=== PATIENT | male | born 1975 | race Caucasian/White ===

== ENCOUNTER 2020-10-14 00:13 | Emergency (ER) | payer OTHER ==
[2020-10-14] MEDS ORDERED: MORPHINE 4 MG/ML SYR ONE (01:31)
[2020-10-14] MEDS ORDERED: KETOROLAC 30 MG/ML INJ ONE (01:32)
[2020-10-14] MEDS ORDERED: ONDANSETRON 4 MG/2 ML VIAL ONE (01:32)
[2020-10-14] MEDS ORDERED: NA CHLORIDE 0.9% 1,000 ML ONE (01:32)
[2020-10-14 01:34] LABS: Absolute Lymphocytes (CBC) 1.3 K/uL (0.7-4.9); Basophils % 0.5 % (0-1.3); Hematocrit 41.6 % (39.6-49.0); Lymphocytes % 10.6 % (15.3-44.8); MPV 7.8 fL (7.6-11.3); RBC Red Blood Cell Count 4.74 M/uL (4.33-5.43)
[2020-10-14 01:40] LABS: Albumin 4.6 g/dL (3.4-5.0); Bilirubin Direct 0.1 mg/dL (0-0.2); Bilirubin Total 0.5 mg/dL (0.2-1.0); Potassium 3.8 mmol/L (3.5-5.1); Protein, Total 7.6 g/dL (6.4-8.2)
--- NOTE | 2020-10-14 02:39 | ER ---
Nurse's Notes [facility] Name: Jassi Cohen Age: 45 yrs Sex: Male : 1975 Arrival Date: 10/14/2020 Time: 00:17 Bed 27 Private MD: Diagnosis: Fall (on) (from) other stairs and steps;Contusion of back wall of thorax;Pain in right shoulder Presentation: 10/14 00:25 Chief complaint: Patient states: I slipped on my porch going down the steps and landed iw on my back and now my middle back. neck, right arm are all hurting. Care prior to arrival: None. Mechanism of Injury: Fall from standing position. Trauma event details: Injury occurred in the [facility]. 00:25 Acuity: KIEL 3 iw 00:25 Method Of Arrival: Ambulatory iw 00:25 Coronavirus screen: At this time, the client does not indicate any symptoms associated iw with coronavirus-19. Ebola Screen: Patient negative for fever greater than or equal to 101.5 degrees Fahrenheit, and additional compatible Ebola Virus Disease symptoms Patient denies exposure to infectious person. Patient denies travel to an Ebola-affected area in the 21 days before illness onset. No symptoms or risks identified at this time. Initial Sepsis Screen: Does the patient meet any 2 criteria? No. Patient's initial sepsis screen is negative. Does the patient have a suspected source of infection? No. Patient's initial sepsis screen is negative. Risk Assessment: Do you want to hurt yourself or someone else? Patient reports no desire to harm self or others. Onset of symptoms was October 14, 2020. Triage Assessment: 02:55 General: Appears in no apparent distress. Behavior is calm, cooperative. iw Trauma Activation: Not Applicable Physician: ED Physician; Name: ; Notified At: ; Arrived At: Physician: General Surgeon; Name: ; Notified At: ; Arrived At: Physician: Radiology; Name: ; Notified At: ; Arrived At: Physician: Respiratory; Name: ; Notified At: ; Arrived At: Physician: Lab; Name: ; Notified At: ; Arrived At: Historical: - Allergies: 00:29 Wellbutrin; iw - Home Meds: 00:29 amlodipine oral [Active]; trazodone Oral [Active]; Omeprazole Oral [Active]; Acyclovir iw Oral [Active]; - PMHx: 00:29 Hypertension; insomnia; herpes; acid reflux; iw - PSHx: 00:29 Vasectomy; iw - Immunization history:: Adult Immunizations up to date. - Social history:: Smoking status: Patient reports the use of cigarette tobacco products, smokes one-half pack cigarettes per day, Patient/guardian denies using alcohol, street drugs. Screenin:52 Abuse screen: Denies threats or abuse. Denies injuries from another. Nutritional iw screening: No deficits noted. Tuberculosis screening: No symptoms or risk factors identified. Fall Risk IV access (20 points). Assessment: :52 Reassessment: Patient appears in no apparent distress at this time. Patient and/or iw family updated on plan of care and expected duration. Pain level reassessed. Patient is alert, oriented x 3, equal unlabored respirations, skin warm/dry/pink. Vital Signs: 00:30 BP 145 / 100; Pulse 71; Resp 18; Temp 98.7(O); Pulse Ox 100% ; Weight 77.11 kg; Height iw 5 ft. 9 in. (175.26 cm); Pain 10/10; 00:30 Body Mass Index 25.10 (77.11 kg, 175.26 cm) iw ED Course: 00:17 Patient arrived in ED. am4 00:26 Filipe Moya MD is Attending Physician. leonid 00:27 Triage completed. iw 00:31 Arm band placed on left wrist. iw 00:33 Taylor Izquierdo, RN is Primary Nurse. iw 00:36 Initial lab(s) drawn, by me, sent to lab. Inserted saline lock: 20 gauge in right iw antecubital area, using aseptic technique. Blood collected. 02:16 XRAY Chest (1 view) In Process Unspecified. EDMS 02:16 CT Traumagram (Head C Spine CAP W Con) In Process Unspecified. EDMS 02:16 Shoulder Right (2 View) XRAY In Process Unspecified. EDMS 02:38 Zeus Liang MD is Referral Physician. leonid 02:55 No provider procedures requiring assistance completed. IV discontinued, intact, iw bleeding controlled, No redness/swelling at site. Pressure dressing applied. Administered Medications: 01:51 Drug: TORadol (ketorolac) 30 mg Route: IVP; Site: right antecubital; iw 01:51 Drug: morphine 4 mg Route: IVP; Site: right antecubital; iw 01:51 Drug: Zofran (Ondansetron) 4 mg Route: IVP; Site: right antecubital; iw 01:52 Drug: NS 0.9% 1000 ml Route: IV; Rate: 1 bolus; Site: right antecubital; iw Outcome: 02:38 Discharge ordered by MD. jaquez 02:57 Discharged to home ambulatory, with friend. iw 02:57 Condition: good 02:57 Discharge instructions given to patient, Instructed on discharge instructions, follow up and referral plans. medication usage, Demonstrated understanding of instructions, follow-up care, medications, Prescriptions given X 2. 02:57 Patient left the ED. iw Signatures: Dispatcher [employer] EDMS Filipe Moya MD MD cha Williams, Irene, RN RN Lucie Rivera am4
--- NOTE | 2020-10-14 02:39 | EDPHYS ---
Physician Documentation [facility] Name: Jassi Cohen Age: 45 yrs Sex: Male : 1975 Arrival Date: 10/14/2020 Time: 00:17 Bed 27 Private MD: ED Physician Filipe Moya HPI: 10/14 00:48 This 45 yrs old Male presents to ER via Ambulatory with complaints of Fall leonid Injury. 00:48 Details of fall: The patient fell from a height, down approximately 5 stairs. Onset: leonid The symptoms/episode began/occurred 5 hour(s) ago. Associated injuries: The patient sustained injury to the head, neck injury, upper back injury, injury to the low back, injury to the chest, pain with breathing, tenderness. Severity of symptoms: At their worst the symptoms were moderate, in the emergency department the symptoms are unchanged. The patient has not experienced similar symptoms in the past. Historical: - Allergies: 00:29 Wellbutrin; iw - Home Meds: 00:29 amlodipine oral [Active]; trazodone Oral [Active]; Omeprazole Oral [Active]; Acyclovir iw Oral [Active]; - PMHx: 00:29 Hypertension; insomnia; herpes; acid reflux; iw - PSHx: 00:29 Vasectomy; iw - Immunization history:: Adult Immunizations up to date. - Social history:: Smoking status: Patient reports the use of cigarette tobacco products, smokes one-half pack cigarettes per day, Patient/guardian denies using alcohol, street drugs. ROS: 00:49 Constitutional: Negative for fever, chills, and weight loss, Eyes: Negative for injury, leonid pain, redness, and discharge, ENT: Negative for injury, pain, and discharge, Neck: Negative for injury, pain, and swelling, Cardiovascular: Negative for chest pain, palpitations, and edema, Abdomen/GI: Negative for abdominal pain, nausea, vomiting, diarrhea, and constipation, : Negative for injury, bleeding, discharge, and swelling, MS/Extremity: Negative for injury and deformity, Skin: Negative for injury, rash, and discoloration, Neuro: Negative for headache, weakness, numbness, tingling, and seizure, Psych: Negative for depression, anxiety, suicide ideation, homicidal ideation, and hallucinations, Allergy/Immunology: Negative for hives, rash, and allergies, Endocrine: Negative for neck swelling, polydipsia, polyuria, polyphagia, and marked weight changes, Hematologic/Lymphatic: Negative for swollen nodes, abnormal bleeding, and unusual bruising. 00:49 Respiratory: Positive for cough, with no reported sputum, shortness of breath, at rest. 00:49 Back: Positive for pain at rest, pain with movement, of the lumbar area, left mid back and right mid back. Exam: 00:49 Constitutional: This is a well developed, well nourished patient who is awake, alert, leonid and in no acute distress. Head/Face: Normocephalic, atraumatic. Eyes: Pupils equal round and reactive to light, extra-ocular motions intact. Lids and lashes normal. Conjunctiva and sclera are non-icteric and not injected. Cornea within normal limits. Periorbital areas with no swelling, redness, or edema. ENT: Nares patent. No nasal discharge, no septal abnormalities noted. Tympanic membranes are normal and external auditory canals are clear. Oropharynx with no redness, swelling, or masses, exudates, or evidence of obstruction, uvula midline. Mucous membranes moist. Neck: Trachea midline, no thyromegaly or masses palpated, and no cervical lymphadenopathy. Supple, full range of motion without nuchal rigidity, or vertebral point tenderness. No Meningismus. Chest/axilla: Normal chest wall appearance and motion. Nontender with no deformity. No lesions are appreciated. Cardiovascular: Regular rate and rhythm with a normal S1 and S2. No gallops, murmurs, or rubs. Normal PMI, no JVD. No pulse deficits. Abdomen/GI: Soft, non-tender, with normal bowel sounds. No distension or tympany. No guarding or rebound. No evidence of tenderness throughout. Male : Normal genitalia with no discharge or lesions. Skin: Warm, dry with normal turgor. Normal color with no rashes, no lesions, and no evidence of cellulitis. MS/ Extremity: Pulses equal, no cyanosis. Neurovascular intact. Full, normal range of motion. Neuro: Awake and alert, GCS 15, oriented to person, place, time, and situation. Cranial nerves II-XII grossly intact. Motor strength 5/5 in all extremities. Sensory grossly intact. Cerebellar exam normal. Normal gait. Psych: Awake, alert, with orientation to person, place and time. Behavior, mood, and affect are within normal limits. 00:49 Respiratory: the patient does not display signs of respiratory distress, Respirations: asymmetrical chest movement, that is mild. 00:49 Back: pain, that is mild, that is moderate, of the lumbar area, left mid back and right mid back, ROM is normal, normal spinal alignment noted, CVA tenderness, is absent, vertebral tenderness, is not appreciated. Vital Signs: 00:30 BP 145 / 100; Pulse 71; Resp 18; Temp 98.7(O); Pulse Ox 100% ; Weight 77.11 kg; Height iw 5 ft. 9 in. (175.26 cm); Pain 10/10; 00:30 Body Mass Index 25.10 (77.11 kg, 175.26 cm) iw MDM: 00:44 Patient medically screened. leonid 00:52 Differential diagnosis: Fracture Osteoporosis ruptured disc. Antibiotic administration: leonid Not indicated. Differential diagnosis: contusion, fracture, laceration, multiple trauma, sprain, strain. The patient's Wells Deep Vein Thrombosis Score was calculated as follows: Total Score: 0-2 Pts- Low Risk. The patient's pulmonary embolism risk score was calculated as follows: Total Score: 0-2 points. This patient was found to be at low risk for a pulmonary embolism by using the Well's assessment criteria. Immunization status:. Data reviewed: vital signs, nurses notes, lab test result(s), EKG, radiologic studies, CT scan, plain films. Data interpreted: bus monitor: rate is 71 beats/min, rhythm is regular, Pulse oximetry: on room air is 100 %. Test interpretation: by ED physician or midlevel provider: ECG, plain radiologic studies. Counseling: I had a detailed discussion with the patient and/or guardian regarding: the historical points, exam findings, and any diagnostic results supporting the discharge/admit diagnosis, the presence of at least one elevated blood pressure reading (>120/80) during this emergency department visit, lab results, the need for outpatient follow up, for definitive care, a family practitioner, a orthopedic surgeon. 10/14 00:48 Order name: Basic Metabolic Panel leonid 10/15 99:48 Order name: CBC with Diff leonid 10/15 99:48 Order name: LFT's leonid 05/20 00:48 Order name: Lipase leonid 10/14 01:40 Order name: Basic Metabolic Panel; Complete Time: 02:17 [facility] 10/14 00:48 Order name: XRAY Chest (1 view) [facility] 10/14 00:48 Order name: CT Traumagram (Head C Spine CAP W Con) [facility] 10/14 00:48 Order name: Shoulder Right (2 View) XRAY [facility] 10/14 00:57 Order name: INCENTIVE SPIROMETRY [facility] 10/14 01:40 Order name: Liver (Hepatic) Function; Complete Time: 02:17 [facility] 10/14 01:40 Order name: Lipase; Complete Time: 02:17 [facility] 10/14 01:50 Order name: CBC with Automated Diff; Complete Time: 02:17 [facility] 10/14 02:12 Order name: CREATININE WHOLE BLOOD; Complete Time: 02:17 [facility] 10/14 00:48 Order name: Labs collected and sent; Complete Time: 01:07 [facility] 10/14 00:58 Order name: Sling; Complete Time: 02:56 [facility] 10/14 00:58 Order name: Ice pack; Complete Time: 02:57 [facility] Administered Medications: 01:51 Drug: TORadol (ketorolac) 30 mg Route: IVP; Site: right antecubital; iw 01:51 Drug: morphine 4 mg Route: IVP; Site: right antecubital; iw 01:51 Drug: Zofran (Ondansetron) 4 mg Route: IVP; Site: right antecubital; iw 01:52 Drug: NS 0.9% 1000 ml Route: IV; Rate: 1 bolus; Site: right antecubital; iw Disposition: 10/14/20 02:38 Discharged to Home. Impression: Fall (on) (from) other stairs and steps, Contusion of back wall of thorax, Pain in right shoulder. - Condition is Stable. - Discharge Instructions: Fall Prevention in the Home, Musculoskeletal Pain, Shoulder Pain, Cryotherapy, [id number], Incentive Spirometer, Shoulder Pain, [id number], Fall Prevention in the Home, [id number], Cryotherapy. - Prescriptions for Ibuprofen 600 mg Oral Tablet - take 1 tablet by ORAL route every 6 hours As needed take with food; 20 tablet. Tylenol- Codeine #3 300-30 mg Oral Tablet - take 2 tablets by ORAL route every 4-6 hours As needed; 26 tablet. - Medication Reconciliation Form, Thank You Letter, Antibiotic Education, Prescription Opioid Use form. - Follow up: Private Physician; When: 2 - 3 days; Reason: Recheck today's complaints, Continuance of care, Re-evaluation by your physician. Follow up: Zeus Liang; When: 2 - 3 days; Reason: Recheck today's complaints, Re-evaluation by your physician. - Problem is new. - Symptoms have improved. Signatures: Dispatcher [employer] EDFilipe Mart MD MD cha Williams, Irene RN RN iw Corrections: (The following items were deleted from the chart) 02:57 02:38 10/14/2020 02:38 Discharged to Home. Impression: Fall (on) (from) other stairs iw and steps; Contusion of back wall of thorax; Pain in right shoulder. Condition is Stable. Discharge Instructions: Musculoskeletal Pain, Shoulder Pain, Cryotherapy, [id number], Shoulder Pain, [id number], Cryotherapy, Fall Prevention in the Home, Incentive Spirometer, Fall Prevention in the Home, [id number]-ly-[id number]. Prescriptions for Ibuprofen 600 mg Oral Tablet - take 1 tablet by ORAL route every 6 hours As needed take with food; 20 tablet, Tylenol-Codeine #3 300-30 mg Oral Tablet - take 2 tablets by ORAL route every 4-6 hours As needed; 26 tablet. and Forms are Medication Reconciliation Form, Thank You Letter, Antibiotic Education, Prescription Opioid Use. Follow up: Private Physician; When: 2 - 3 days; Reason: Recheck today's complaints, Continuance of care, Re-evaluation by your physician. Follow up: Zeus Liang; When: 2 - 3 days; Reason: Recheck today's complaints, Re-evaluation by your physician. Problem is new. Symptoms have improved. leonid
[2020-10-14 03:06] VITALS: BP 145/100; TEMP 98.7; O2SAT 100
--- NOTE | 2020-10-14 07:24 | RAD REPORT ---
EXAM DESCRIPTION: Leodan Single View10/14/2020 1:14 am CLINICAL HISTORY: Chest pain COMPARISON: none FINDINGS: The lungs appear clear of acute infiltrate. The heart is normal size IMPRESSION: No acute abnormalities displayed
--- NOTE | 2020-10-14 07:40 | RAD REPORT ---
EXAM DESCRIPTION: RAD - Shoulder Right 2 View - 10/14/2020 1:14 am CLINICAL HISTORY: Right shoulder pain FINDINGS: No fracture or dislocation is seen.
--- NOTE | 2020-10-14 10:44 | RAD REPORT ---
EXAM DESCRIPTION: CT - Head C Spine Cap Augustina Grimm - 10/14/2020 6:48 am CLINICAL HISTORY: The patient is 45 years old and is Male; PAIN TECHNIQUE: Axial computed tomography images of the head/brain and cervical spine without intravenous contrast. Sagittal and coronal reformatted images were created and reviewed. This CT exam was pe rformed using one or more of the following dose reduction techniques: automated exposure control, a djustment of the mA and/or kV according to patient size, and/or use of iterative reconstruction techn ique. COMPARISON: No relevant prior studies available. FINDINGS: Brain: Unremarkable. No hemorrhage. No significant white matter disease. No edema. Ventricles: Unremarkable. No ventriculomegaly. Skull: No acute fracture. Sinuses: Unremarkable as visualized. No acute sinusitis. Mastoid air cells: Unremarkable as visualized. No mastoid effusion. Vertebrae: Unremarkable. No acute fracture. Normal alignment. Discs/spinal canal/neural foramina: No acute findings. No spinal canal stenosis. Soft tissues: Unremarkable. 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 * A single impression for all exams can be found at the end of this report EXAM DESCRIPTION: CT Chest, Abdomen and Pelvis With Intravenous Contrast CLINICAL HISTORY: The patient is 45 years old and is Male; PAIN TECHNIQUE: Axial computed tomography images of the chest, abdomen and pelvis with intravenous contra st. Sagittal and coronal reformatted images were created and reviewed. This CT exam was performed using one or more of the following dose reduction techniques: automated exposure control, adjustme nt of the mA and/or kV according to patient size, and/or use of iterative reconstruction technique. COMPARISON: No relevant prior studies available. FINDINGS: CHEST: Lungs: Unremarkable. No mass. No consolidation. Pleural space: Unremarkable. No significant effusion. No pneumothorax. Heart: Unremarkable. No cardiomegaly. No significant pericardial effusion. ABDOMEN: Liver: Unremarkable. No mass. Gallbladder and bile ducts: Unremarkable. No calcified stones. No ductal dilation. Pancreas: Unremarkable. No ductal dilation. No mass. Spleen: Unremarkable. No splenomegaly. Adrenals: Unremarkable. No mass. Kidneys and ureters: Unremarkable. No hydronephrosis. No solid mass. Stomach and bowel: There is the suggestion bowel wall thickening involving the proximal small jenny wel. No obstruction. PELVIS: Appendix: The appendix is normal. Bladder: Unremarkable. No mass. Reproductive: Unremarkable as visualized. CHEST, ABDOMEN and PELVIS: Intraperitoneal space: Unremarkable. No significant fluid collection. No free air. Bones/joints: Unremarkable. No acute fracture. No dislocation. Soft tissues: Unremarkable. Vasculature: Unremarkable. No aortic aneurysm. Lymph nodes: Unremarkable. No enlarged lymph nodes. * A single impression for all exams can be found at the end of this report IMPRESSION: CT Head and Cervical Spine Without Intravenous Contrast: 1. No acute intracranial abnormality. 2. Peripherally oriented calcification in the pineal region with the suggestion of an underlying cy stic lesion. Consider MRI for further evaluation if clinically indicated. CT Chest, Abdomen and Pelvis With Intravenous Contrast: 1. No acute finding in the chest. 2. There is the suggestion bowel wall thickening involving the proximal small bowel. Correlate wi th any concern for enteritis. Electronically signed by: Jassi Valerio MD 10/14/2020 2:22 AM CDT Due to temporary technical issues with the PACS/Fluency reporting system, reports are being signed by the in house radiologist without review as a courtesy to ensure prompt reporting. The interpreting r adiologist is fully responsible for the content of the report.
== END 2020-10-14 02:57 | disposition home or self-care (01) ==
LOC: ER 00:13
DX: S20.221A Contusion of right back wall of thorax, initial encounter (principal); M25.511 Pain in right shoulder; W10.9XXA Fall (on) (from) unspecified stairs and steps, initial encounter; I10 Essential (primary) hypertension; F17.210 Nicotine dependence, cigarettes, uncomplicated; Z88.8 Allergy status to other drugs, medicaments and biological substances
CPT/HCPCS: 85025; 80048; 36415; 82565; 80076; 83690; 70450; 72125; 71260; 74177; 71045; 73030; 96375; 96374; 99284; Q9967; J7030; J2405

== ENCOUNTER 2021-05-10 12:09 | Emergency (ER) | payer OTHER, SELFPAY ==
[2021-05-10 13:38] LABS: SARS-COV-2 RT PCR NEGATIVE (NEGATIVE)
--- NOTE | 2021-05-10 14:31 | EDPHYS ---
Physician Documentation [facility] Name: Jassi Cohen Age: 46 yrs Sex: Male : 1975 Arrival Date: 05/10/2021 Time: 12:18 Bed DIS14 Private MD: ED Physician Mundo Rai HPI: 05/10 14:26 This 46 yrs old Male presents to ER via EMS with complaints of Chest Pain. rn 14:26 The patient or guardian reports chest pain that is located primarily in the anterior rn chest wall. Onset: 4 day(s) ago. The pain does not radiate. Associated signs and symptoms: Pertinent negatives: abdominal pain, diaphoresis, lower extremity swelling, palpitations, shortness of breath, syncope, vomiting. The chest pain is described as sharp. Duration: The patient or guardian reports multiple episodes, that are intermittent. Modifying factors: The symptoms are alleviated by nothing. the symptoms are aggravated by palpation of area. Severity of pain: At its worst the pain was moderate in the emergency department the pain has improved. The patient has experienced similar episodes in the past. The patient has not recently seen a physician. Patient reports 4-5 days of chest pain, anterior, nonradiating, not associated with fever or cough. No abdominal pain. No acid reflux. Also reports aches and pains in the neck and back and hands and feet. Denies drug use. Reports family history of coronary artery disease. Patient does not feel ill. Is active smoker. Denies injury. Patient was brought back after 2-hour wait in the lobby, states he does not want to wait for a work-up. Request to be discharged home and states will take it easy and return if anything worsens.. Historical: - Home Meds: 12:21 amlodipine oral [Active]; lisinopril 10 mg Oral tab [Active]; jh6 - Immunization history:: Client reports receiving the 2nd dose of the Covid vaccine. - Social history:: Smoking status: Patient reports the use of cigarette tobacco products. - Family history:: not pertinent. - Hospitalizations: : No recent hospitalization is reported. ROS: 14:26 Constitutional: Negative for fever, chills, and weight loss, Eyes: Negative for injury, rn pain, redness, and discharge, Neck: Negative for injury, and swelling, Cardiovascular: Negative for palpitations, and edema, Respiratory: Negative for shortness of breath, cough, wheezing, and pleuritic chest pain, Abdomen/GI: Negative for abdominal pain, nausea, vomiting, diarrhea, and constipation, Back: Negative for injury and pain, MS/Extremity: Negative for injury and deformity, Skin: Negative for injury, rash, and discoloration, Neuro: Negative for headache, weakness, numbness, tingling, and seizure. Exam: 14:26 Constitutional: This is a well developed, well nourished patient who is awake, alert, rn and in no acute distress. Head/Face: Normocephalic, atraumatic. Eyes: Periorbital areas with no swelling, redness, or edema. Chest/axilla: Mild tenderness anterior chest wall, no crepitus or masses Cardiovascular: Regular rate and rhythm . No pulse deficits. Respiratory: No increased work of breathing, no retractions or nasal flaring. Abdomen/GI: Soft, non-tender Skin: Warm, dry MS/ Extremity: Pulses equal, no cyanosis. Neuro: Awake and alert, GCS 15 Vital Signs: 12:18 BP 151 / 92; Pulse 80; Resp 17; Temp 99(T); Pulse Ox 100% ; Weight 77.11 kg; Height 5 jh6 ft. 9 in. (175.26 cm); Pain 5/10; 15:03 BP 146 / 84; Pulse 80; Resp 16; Pulse Ox 100% on R/A; Pain 0/10; ss 12:18 Body Mass Index 25.10 (77.11 kg, 175.26 cm) 6 MDM: 14:09 Patient medically screened. rn 14:26 Differential diagnosis: abnormal EKG, acute myocardial infarction, acute pericarditis, rn anxiety, coronary artery disease chest wall pain, cholecystitis, Cholelithiasis costochondritis, esophagitis, gastritis, gastroesophageal reflux disease (GERD), pleurisy, pneumonia, pneumothorax, pulmonary embolus. Data reviewed: vital signs, nurses notes, lab test result(s), EKG. Refusal of service: The patient/guardian displays adequate decision making capability and despite a detailed discussion of alternatives, benefits, risks, and consequences refuses: all lab tests, Medications, all X-rays. ED course: Pt refuses further w/u, wishes to be discharged home. Understands risks of leaving prior to work-up and further evaluation. States is tired and wants to go home and take it easy. Return precautions given and understood.. 05/10 12:38 Order name: COVID-19/FLU A+B (Document "Date of Onset" if Symptomatic); Complete Time: ss 14:26 05/10 14:11 Order name: EKG; Complete Time: 14:11 ss 12 14:11 Order name: EKG - Nurse/Tech; Complete Time: 14:11 ss Administered Medications: No medications were administered Disposition Summary: 05/10/21 14:30 Discharge Ordered Location: Home rn Problem: new rn Symptoms: have improved rn Condition: Stable rn Diagnosis - Chest pain, unspecified rn Followup: rn - With: Private Physician - When: As needed - Reason: Recheck today's complaints, Re-evaluation by your physician Discharge Instructions: - Discharge Summary Sheet rn - Nonspecific Chest Pain, Adult rn - Pain Without a Known Cause rn - Steps to Quit Smoking rn Forms: - Medication Reconciliation Form rn - Thank You Letter rn - Antibiotic rn support services - Prescription Opioid Use rn Signatures: Dispatcher [employer] EDMundo Griffith MD MD rn Smirch, Shelby, RN RN Lia Rubio RN RN [facility] Corrections: (The following items were deleted from the chart) 12: 12:21 PMHx: Hypertension; 6 6 12: 12:21 PMHx: insomnia; [address] [facility] 12: 12:21 PMHx: HERPES; [address] [facility] 12: 12:21 PMHx: acid reflux; [address] [facility]
--- NOTE | 2021-05-10 14:31 | ER ---
Nurse's Notes [facility] Name: Jassi Cohen Age: 46 yrs Sex: Male : 1975 Arrival Date: 05/10/2021 Time: 12:18 Bed DIS14 Private MD: Diagnosis: Chest pain, unspecified Presentation: 05/10 12:18 Chief complaint: Patient states: heavy chest pain that has been present x 4 days. [facility] states came on gradually while at work with dizziness. Coronavirus screen: At this time, the client does not indicate any symptoms associated with coronavirus-19. Ebola Screen: No symptoms or risks identified at this time. Initial Sepsis Screen: Does the patient meet any 2 criteria? No. Patient's initial sepsis screen is negative. Does the patient have a suspected source of infection? No. Patient's initial sepsis screen is negative. Risk Assessment: Do you want to hurt yourself or someone else? Patient reports no desire to harm self or others. Onset of symptoms was May 06, 2021. 12:18 Method Of Arrival: EMS: [facility] 12:18 Acuity: KIEL 2 [facility] Triage Assessment: 12:22 General: Appears in no apparent distress. comfortable, slender, well groomed, Behavior [facility] is calm. Pain: Complains of pain in left nipple Pain does not radiate. Pain currently is 5 out of 10 on a pain scale. Cardiovascular: No deficits noted. Historical: - Home Meds: 12:21 amlodipine oral [Active]; lisinopril 10 mg Oral tab [Active]; [facility] - Immunization history:: Client reports receiving the 2nd dose of the Covid vaccine. - Social history:: Smoking status: Patient reports the use of cigarette tobacco products. - Family history:: not pertinent. - Hospitalizations: : No recent hospitalization is reported. Screenin:24 Abuse screen: Denies threats or abuse. Nutritional screening: No deficits noted. [facility] Tuberculosis screening: No symptoms or risk factors identified. 15:03 Fall Risk None identified. ss Assessment: 15:03 Reassessment: Patient appears in no apparent distress at this time. Patient and/or ss family updated on plan of care and expected duration. Pain level reassessed. Patient is alert, oriented x 3, equal unlabored respirations, skin warm/dry/pink. Patient states feeling better. Patient states symptoms have improved. Pain: Denies pain. Vital Signs: 12:18 BP 151 / 92; Pulse 80; Resp 17; Temp 99(T); Pulse Ox 100% ; Weight 77.11 kg; Height 5 [facility] ft. 9 in. (175.26 cm); Pain 5/10; 15:03 BP 146 / 84; Pulse 80; Resp 16; Pulse Ox 100% on R/A; Pain 0/10; ss 12:18 Body Mass Index 25.10 (77.11 kg, 175.26 cm) [facility] ED Course: 12:18 Patient arrived in ED. mr 12:21 Triage completed. [facility] 12:23 Arm band placed on right wrist. [facility] 12:24 Maintain EMS IV. Dressing intact. Good blood return noted. Site clean \T\ dry. 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 14:09 Mundo Rai MD is Attending Physician. rn 15:03 Patient has correct armband on for positive identification. Bed in low position. Call ss light in reach. Pulse ox on. NIBP on. 15:04 No provider procedures requiring assistance completed. IV discontinued, intact, ss bleeding controlled, No redness/swelling at site. Pressure dressing applied. Patient maintains SpO2 saturation greater than 95% on room air. Administered Medications: No medications were administered Outcome: 14:30 Discharge ordered by . rn 15:04 Discharged to home ambulatory. 15:04 Condition: good 15:04 Discharge instructions given to patient, Instructed on discharge instructions, follow up and referral plans. Demonstrated understanding of instructions, follow-up care. 15:04 Patient left the ED. Signatures: Rukhsana Chavez mr Mundo Rai MD MD rn Smirch, Shelby, RN RN Lia Rubio RN RN 6 Corrections: (The following items were deleted from the chart) 12: 12:21 PMHx: Hypertension; [place] [id number] : 12:21 PMHx: insomnia; [place] [id number] : 12:21 PMHx: HERPES; [place] [id number] : 12:21 PMHx: acid reflux; [place] [id number]
[2021-05-10 15:28] VITALS: TEMP 99; O2SAT 100
[2021-05-10 15:30] VITALS: BP 146/84
--- NOTE | 2021-05-11 07:51 | EKG ---
Test Date: 2021-05-10 Test Time: 12:29:32 Administrative And Program Specialist: BLAKE MEASUREMENT RESULTS: Intervals: Rate: 60 MA: 184 QRSD: 100 QT: 412 QTc: 412 [place]: P: 78 MA: 184 QRS: 42 T: 61 INTERPRETIVE STATEMENTS: Normal sinus rhythm with sinus arrhythmia Septal infarct, age undetermined Abnormal ECG No previous ECG available for comparison Electronically Signed On 05-11-21 07:48:14 UNDERLINER by Nito Calvin
== END 2021-05-10 15:04 | disposition home or self-care (01) ==
LOC: ER 12:09
DX: R07.9 Chest pain, unspecified (principal); Z72.0 Tobacco use; Z20.822 Contact with and (suspected) exposure to COVID-19
CPT/HCPCS: 0240U; 93005; 99284